=== PATIENT | female | born 1965 | race Caucasian/White ===

== ENCOUNTER 2022-05-31 13:58 | Emergency (ER) | payer SELFPAY ==
[~2022-05-31] VITALS: Ht 160 cm; Wt 70.3 kg
[~2022-05-31 13:58] MED LIST: FLUOXETINE HCL20 M1 PO
[2022-05-31] MEDS ORDERED: ULTRAM 50MG50 MG PO (15:26)
== END 2022-05-31 15:32 | disposition home or self-care (01) ==
LOC: ER 14:03
DX: S40.011A Contusion of right shoulder, initial encounter (principal); I10 Essential (primary) hypertension; W18.39XA Other fall on same level, initial encounter; Y93.89 Activity, other specified
CPT/HCPCS: 99283